=== PATIENT | male | born 1995 | race Caucasian/White ===

== ENCOUNTER 2025-02-26 10:28 | Outpatient (CLI) | payer BC, SELFPAY ==
--- NOTE | 2025-02-26 10:49 | MR_ITS ---
WS: [id number] MRI BRAIN WITH AND WITHOUT CONTRAST HISTORY: occipital MACIEL COMPARISON: None available. TECHNIQUE: Multiplanar imaging performed through the brain with MultiHance 16 ml's IV. Normal diffusion imaging. Numerous areas of increased T2 signal in the subcortical white matter. Linear area of increased signal towards the superior LEFT frontal lobe vertex. Additional scattered T2 signal along the superior LEFT lateral corpus callosum. Increased signal in the genu of the corpus callosum at the midline. Mild thinning of the posterior corpus callosum. Additional areas of increased T2 signal greater on the LEFT involving the medial temporal lobes. Mild cerebellar atrophy. No hemorrhage is identified in the areas of increased signal. No large territory ischemic infarct. Ventricles and extra-axial spaces are normal. Clivus and pituitary gland are normal. Postcontrast images are negative for masses or vascular malformations. Dural venous sinuses are normal. Paranasal sinuses: Well aerated with no significant disease. Mastoid air cells: Normal. Calvarium and scalp: Normal. MR/MR head wo/w con [id number] IMPRESSION: 1. Normal diffusion imaging. No acute infarct or hemorrhage. 2. 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 Large area of increased s ignal involving the LEFT frontal lobe towards the superior vertex. Additional p atchy areas of increased signal along the LEFT superior corpus callosum and inv olving the genu of the corpus callosum. There is mild atrophy of the posterior corpus callosum. 3. Bilateral signal abnormalities greater on the LEFT involving the inferior m edial temporal lobes. No hemorrhage noted or hemosiderin within the areas of si gnal change. 4. Bilateral cerebellar atrophy. 5. No enhancing masses.
[2025-02-26] MEDS: gadobenate dimeglumine 20 mL vial 16 ML IV (11:31)
== END 2025-02-26 10:29 | disposition home or self-care (01) ==
LOC: RAD 10:34
PROVIDERS: Family Provider Family Medicine; PCP Family Medicine; Visit Provider Family Medicine
DX: M54.81 Occipital neuralgia (principal); R51.9 Headache, unspecified
CPT/HCPCS: 70553